=== PATIENT | female | born 1995 | race Two or more races ===

== ENCOUNTER 2016-12-28 18:38 | Emergency (ER) | payer MEDICAID ==
[~2016-12-28] VITALS: Ht 160 cm; Wt 65.8 kg
[2016-12-28 21:03] VITALS: BP 151/79
[2016-12-28] MEDS ORDERED: TETANUS-DIPTH-ACEL PERTUSSIS 0.5ML SYRG IM ONE (21:45)
== END 2016-12-28 21:56 | disposition home or self-care (01) ==
LOC: ER 18:50
DX: S61.211A Laceration without foreign body of left index finger without damage to nail, initial encounter (principal); J45.909 Unspecified asthma, uncomplicated; W45.8XXA Other foreign body or object entering through skin, initial encounter; Y93.89 Activity, other specified; Y92.89 Other specified places as the place of occurrence of the external cause; Y99.8 Other external cause status
CPT/HCPCS: 12002; 90471; 90715

== ENCOUNTER 2024-10-05 00:52 | Emergency (ER) | payer MEDICAID ==
[~2024-10-05] VITALS: Ht 165.1 cm; Wt 84.0 kg
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
[2024-10-05] MEDS ORDERED: ACET500T58 PO (01:51)
[2024-10-05] MEDS ORDERED: IBUP-1455 PO (01:51)
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
[2024-10-05 05:50] VITALS: BP 132/80; PULSE 100; RESP 18; TEMP 98; O2SAT 100
[2024-10-05] MEDS: KETOROLAC TROMETH 60MG/2ML VIAL IM ONE (06:00)
[2024-10-05] MEDS: HYDROcodone-ACET 10/325MG TAB PO ONE (06:00)
== END 2024-10-05 06:00 | disposition home or self-care (01) ==
LOC: EDBD 00:52 → ER 00:52
DX: S39.012A Strain of muscle, fascia and tendon of lower back, initial encounter (principal); S90.00XA Contusion of unspecified ankle, initial encounter; Z91.018 Allergy to other foods; J45.909 Unspecified asthma, uncomplicated; V43.52XA Car driver injured in collision with other type car in traffic accident, initial encounter; Y93.89 Activity, other specified; Y92.410 Unspecified street and highway as the place of occurrence of the external cause; Y99.8 Other external cause status
CPT/HCPCS: 72100; 73610